=== PATIENT | female | born 1950 | race Caucasian/White ===

== ENCOUNTER 2018-03-29 22:10 | Inpatient (IN) | payer MEDICARE, MEDICAID ==
[2018-03-29] MEDS ORDERED: Sodium Chloride 0.9% 1,000 ML IV ONE (22:39)
--- NOTE | 2018-03-29 22:46 | ED Physician Chart ---
ED Chief Complaint/HPI - Patient Information Date Seen:: 03/29/18 Time Seen:: 22:35 Chief Complaint:: low back pain and anorexia History of Present Illness:: Patient is being sent here for low back pain and for anorexia. She declines to provide any history. Allergies:: Allergies Allergy/AdvReac Type Severity Reaction Status Date / Time aspirin Allergy Verified 03/29/18 22:12 codeine Allergy Verified 03/29/18 22:12 Penicillins [PCN] Allergy Verified 03/29/18 22:12 Sulfa (Sulfonamide Allergy Verified 03/29/18 22:12 Antibiotics) tramadol Allergy Verified 03/29/18 22:12 Vitals:: Vital Signs - 8 hr 03/29/18 22:15 Temp 98.4 F HR 84 RR 19 BP 140/83 O2 Sat % 96 Historian:: Patient, EMS Review:: Nurse's Note Reviewed, Transfer documents Reviewed ED Review of Systems - Review of Systems General/Constitutional: No fever, No chills, No weight loss, No weakness, No diaphoresis, No edema, No loss of appetite Skin: No skin lesions, No rash, No bruising Head: No headache, No light-headedness Eyes: No loss of vision, No pain, No diplopia ENT: No earache, No nasal drainage, No sore throat, No tinnitus Neck: No neck pain, No swelling, No thyromegaly, No stiffness, No mass noted Cardio Vascular: No chest pain, No palpitations, No PND, No orthopnea, No edema Pulmonary: No SOB, No cough, No sputum, No wheezing GI: No nausea, No vomiting, No diarrhea, No pain, No melena, No hematochezia, No constipation, No hematemesis, Other (anorexia) G/U: No dysuria, No frequency, No hematuria Musculoskeletal: Back pain Endocrine: No polyuria, No polydipsia Psychiatric: No prior psych history, No depression, No anxiety, No suicidal ideation Hematopoietic: No bruising, No lymphadenopathy Allergic/Immuno: No urticaria, No angioedema Neurological: No syncope, No focal symptoms, No weakness, No paresthesia, No headache, No seizure, No dizziness, No confusion, No vertigo ED Past Medical History - Past Medical History Past Medical History: HTN, Dyslipidemia, PUD/GERD, Other (low back pain; fibromyalgia; atherosclerotic heart disease; anxiety; hyperlipidemia; insomnia) Family History: Other (unavailable) Social History: Care Facility Surgical History: other (unavailable) Psychiatricy History: Depression Family Medical History - Family Member Mother History Unknown: Yes ED Physical Exam - Physical Examination General/Constitutional: Awake, Well-developed, well-nourished, Alert, No distress, GCS 15, Non-toxic appearing, Ambulatory Head: Atraumatic Eyes: Lids, conjuctiva normal, PERRL, EOMI Skin: Nl inspection, No rash, No skin lesions, No ecchymosis, Well hydrated, No lymphadenopathy ENMT: External ears, nose nl, Nasal exam nl Other ENMT comments:: Upper partial plate and 4 out of 4 periodontal disease lower gum Neck: Nontender, Full ROM w/o pain, No JVD, No nuchal rigidity, No bruit, No mass, No stridor Respiratory: Nl effort/Exclusion, Clear to Auscultation, No Wheeze/Rhonchi/Rales Cardio Vascular: RRR, No murmur, gallop, rubs, NL S1 S2 GI: No tenderness/rebounding/guarding, No organomegaly, No hernia, Normal BS's, Nondistended, No mass/bruits, No McBurney tenderness : No CVA tenderness Extremities: No tenderness or effusion, Full ROM, normal strength in all extremities, No edema, Normal digits & nails Neuro/Psych: Alert/oriented, DTR's symmetric, Normal sensory exam, Normal motor strength, Judgement/insight normal, Mood normal, Normal gait, No focal deficits Misc: Normal back, No paraspinal tenderness ED Labs/Radiology/EKG Results - Lab Results Results: Laboratory Results - last 24 hr 03/29/18 03/29/18 22:53 22:53 WBC 8.9 RBC 3.19 L Hgb 7.1 L* Hct 22.0 L MCV 68.9 L MCH 22.2 L MCHC Differential 32.3 RDW 17.2 Plt Count 322 MPV 10.0 Neutrophils (Manual) 75 Lymphocytes 25 Hypochromia 2+ Platelet Estimate ADEQUATE Polychromasia 1+ Anisocytosis 2+ Microcytosis 2+ Sodium 136 Potassium 4.2 Chloride 107 Carbon Dioxide 20.8 L Anion Gap 12.4 BUN 29 H Creatinine 1.8 H Est GFR ( Amer) 35.8 Est GFR (Non-Af Amer) 29.6 BUN/Creatinine Ratio 16.1 Glucose 103 Calcium 9.4 Total Bilirubin 0.2 L AST 10 L ALT 4 L Alkaline Phosphatase 99 Total Protein 6.6 Albumin 3.9 Globulin 2.7 Albumin/Globulin Ratio 1.4 ED Septic Shock - . Is Septic Shock (SBP<90, OR Lactate>4 mmol\L) present?: No - <6hrs of presentation: Vital Signs: Vital Signs - 8 hr 03/29/18 22:15 Temp 98.4 F HR 84 RR 19 BP 140/83 O2 Sat % 96 ED Reassessment (Disposition) - Reassessment Reassessment Condition:: Unchanged - Diagnosis Diagnosis:: Anemia; low back pain; renal insufficiency - Patient Disposition Spoke to:: Hudson Tucker Admitting Medical Physician:: Hudson Tucker Condition at Disposition:: Stable, Unchanged
[2018-03-29 23:04] LABS: MEAN CORPUSCULAR HEMOGLOBIN 22.2 pg (27.0-31.0); MEAN CORPUSCULAR HGB CONC 32.3 pg (28.0-36.0); PLATELET COUNT 322 Th/cmm (150-400); RED BLOOD COUNT 3.19 Mil/cmm (3.80-5.20); RED CELL DISTRIBUTION WIDTH 17.2 % (11.5-20.0); WHITE BLOOD COUNT 8.9 Th/cmm (4.8-10.8)
[2018-03-29 23:10] LABS: HEMOGLOBIN 7.1 gm/dL (12-16)
[2018-03-29 23:11] LABS: MANUAL DIFF REQUIRED? YES; MEAN CELL VOLUME 68.9 fl (81-100)
[2018-03-29 23:25] LABS: ALB/GLOB RATIO 1.4 (1.0-1.8); ALBUMIN 3.9 gm/dL (3.7-5.3); ANION GAP 12.4 (7.0-16.0); BILIRUBIN,TOTAL 0.2 mg/dL (0.3-1.0); CALCIUM SERUM 9.4 mg/dL (8.6-10.3); CARBON DIOXIDE 20.8 mEq/L (21.0-31.0); CREATININE - SERUM 1.8 mg/dL (0.6-1.2); GFR AFRICAN-AMERICAN 35.8 ml/min (>90); GFR NON AFRICAN-AMERICAN 29.6 ml/min; POTASSIUM SERUM 4.2 mEq/L (3.5-5.1); TOTAL PROTEIN,SERUM 6.6 gm/dL (6.0-8.3)
[2018-03-29 23:36] LABS: ANISOCYTOSIS 2+; HYPOCHROMIA 2+; LYMPHOCYTE 25 % (20-50); NEUTROPHILS 75 % (40-80); PLATELET ESTIMATE ADEQUATE (NORMAL); POLYCHROMASIA 1+; TOTAL CELLS COUNTED 100
[2018-03-29] MEDS ORDERED: Magnesium Hydroxide (MOM) 30 mL UDC PO PRN (23:38)
[2018-03-30] MEDS ORDERED: Levofloxacin 750mg/150mL 750 MG/150 ML BAG IV ONE ×2 (00:05→00:09)
[2018-03-30 00:08] LABS: INR 0.89 (0.5-1.4); PROTHROMBIN TIME (TEST) 9.2 SECONDS (9.5-11.5)
[2018-03-30] MEDS: D5-0.45NS 1,000 ML IV SCH ×2 (01:26→15:26)
[2018-03-30 06:15] VITALS: BP 140/75
--- NOTE | 2018-03-30 08:17 | Diagnostic Imaging Report ---
CHEST X-RAY: AP view INDICATION: Pneumonia COMPARISON: None FINDINGS: There is evidence of prior median sternotomy. Large retrocardiac density is noted. Increased interstitial lung markings are noted. Cardiomegaly is noted. Degenerative changes of the spine are noted. There may have been previous right humeral neck fracture. IMPRESSION: Large retrocardiac density suggestive of a hiatal hernia. Note, pneumonia of the right lower lobe cannot be excluded. Clinical correlation and follow-up is recommended. CT would also provide for additional detail and assessment. Increased interstitial lung markings. A mild degree of congestion cannot be excluded. Cardiomegaly and atherosclerotic vascular disease. Possible previous right humeral neck fracture. Please correlate clinically. If indicated dedicated right shoulder x-rays may be obtained for further assessment. Postsurgical changes.
[2018-03-30] MEDS: Calcium Carb/Vit D 500 mg/200 U Tab PO SCH (08:26)
[2018-03-30] MEDS: Multivitamin Tab PO SCH (08:28)
[2018-03-30] MEDS ORDERED: MEPROBAMATE PO SCH (09:00)
--- NOTE | 2018-03-30 10:14 | History & Physical ---
ADMIT DATE: PATIENT IDENTIFICATION: A 68-year-old female. CHIEF COMPLAINT: Sent to Emergency Room for lower back pain, social isolation, and poor appetite. HISTORY SOURCE: Reviewing the chart from [facility] and Emergency Room MD. HISTORY OF PRESENT ILLNESS: A 68-year-old female who resides at [facility], has been followed by Dr. Tucker, has a diagnosis of hypertension, coronary artery disease, hyperlipidemia, fibromyalgia, chronic insomnia, generalized disorder, and GERD, noted by nursing staff that the patient having poor appetite with social isolation and the patient was complaining of the back pain. The patient was sent to Emergency Room where the patient was seen by Emergency Room MD, Dr. Nikko Lorenzo. The patient was noted to have infiltrate along the right inferior heart border with cardiomegaly and also noted to have large hiatal hernia. The patient was noted to have significant anemia with hemoglobin of 7.1. The patient was advised to be admitted to medical floor until the patient is medically stable and psych evaluation for social isolation. PAST MEDICAL HISTORY: Remarkable for: 1. Hypertension. 2. Hyperlipidemia. 3. Coronary artery disease. 4. DJD. 5. Fibromyalgia. 6. GERD. 7. Anxiety. 8. Chronic insomnia. MEDICATIONS AT HOME: She is taking at home, which includes Plavix, Tylenol, Norvasc, atorvastatin, multivitamin, Pepcid, lidocaine patch, melatonin, metoprolol, milk of magnesia, multivitamin, and Zoloft. ALLERGIES: THE PATIENT IS ALLERGIC TO MULTIPLE MEDICATIONS HERE, WHICH INCLUDES PENICILLIN, SULFA, CODEINE, TRAMADOL, AND ASPIRIN. SOCIAL HISTORY: The patient resides in a group home, unable to get further history. FAMILY HISTORY: Unavailable. REVIEW OF SYSTEMS: The patient is extremely agitated and wants to sleep. Unable to get history from the patient. PHYSICAL EXAMINATION: GENERAL: The patient is alert and awake, lying in the bed with agitated. VITAL SIGNS: Temperature 97.6, pulse 67, respiratory rate is 18, and blood pressure 130/60. HEENT: Normocephalic and atraumatic. Extraocular muscles are intact. Tongue was pink and coated. Poor dentition noted. NECK: Supple. No JVD. No hepatojugular reflex. No lymphadenopathy, thyromegaly, or carotid bruit. HEART: Both heart sounds are regular. No S3, no S4. CHEST AND LUNGS: Equal in expansion. No wheezing, no crackles. ABDOMEN: Soft. No guarding. No rigidity. Bowel sounds present. No palpable mass. EXTREMITIES: No edema, no cyanosis. Peripheral pulses are +2. No calf tenderness noted. Diffuse osteoarthritic changes noted. NEUROLOGIC: Alert and awake, but not following commands. Moving upper and lower extremity. AVAILABLE DIAGNOSTIC DATA: Has been reviewed. CLINICAL IMPRESSION: 1. Severe microcytic hypochromic anemia in the presence of coronary artery disease, needs blood transfusion and further workup. 2. Right lower lobe infiltrate by chest x-ray. 3. Large hiatal hernia. 4. Social isolation with history of depression, need psych evaluation. 5. Lower back pain, suspect chronic, needs further workup to be done as an outpatient. 6. Degenerative joint disease. 7. Gastroesophageal reflux disease. 8. Fibromyalgia by history. PLAN: 1. Admit this patient to Med-Surg floor. 2. Blood transfusion. 3. GI consult. 4. Anemia workup. 5. Psych consult. 6. Appropriate home medicine reconciliation. 7. Hold Plavix. 8. IV antibiotic. 9. CT scan of chest for better evaluation of infiltrate. 10. Fall precautions. 11. IV fluid. 12. General nursing care. 13. Follow up lab. 14. Follow consult recommendation. 15. Care plan reviewed and discussed with RN. JOB# [id number]
[2018-03-30] MEDS: Lidocaine 5% Patch TD SCH (10:41)
[2018-03-30] MEDS: Azithromycin 500 MG in Sodium Chloride 0.9% 250 ML IV SCH (11:50)
--- NOTE | 2018-03-30 14:09 | Diagnostic Imaging Report ---
CT Chest without IV contrast HISTORY: Shortness of breath COMPARISON: Chest x-ray 03/30/2018. Technique: Axial images were obtained from the base of the neck to the upper abdomen without IV contrast. Reconstructions were made. Total DLP to 46, CTD I 17 Findings: Exam is limited due to lack of IV contrast. There is evidence of prior median sternotomy. No evidence of mediastinal lymphadenopathy. Ascending aorta measures up to 3.3 cm. Diffuse atherosclerosis is noted. Mild cardiomegaly is noted. There is a large retrocardiac hiatal hernia primarily along the right side. The lung story demonstrate chronic lung changes with hypoventilatory and atelectatic changes and minimal groundglass opacities. Right basal consolidative changes are also noted adjacent to patient's hiatal hernia. The upper abdomen demonstrate atherosclerosis. Advanced degenerative changes of the spine are noted. IMPRESSION: Large hiatal hernia primarily along the right lower hemithorax. Associated adjacent consolidative changes are seen which may be due to atelectasis, however, pneumonia in this region cannot be excluded Hypoventilatory atelectatic changes of the lungs with mild groundglass opacities likely also due to hypoventilatory change Cardiomegaly and atherosclerosis. Evidence of prior median sternotomy.
[2018-03-31] MEDS: Levothyroxine 0.05 Mg Tab PO SCH (06:50)
[2018-03-31] MEDS: D5-0.45NS 1,000 ML IV SCH ×2 (07:30→13:21)
[2018-03-31] MEDS: Multivitamin Tab PO SCH (09:51)
[2018-03-31] MEDS: Calcium Carb/Vit D 500 mg/200 U Tab PO SCH (09:51)
[2018-03-31] MEDS: Lidocaine 5% Patch TD SCH (10:14)
--- NOTE | 2018-03-31 10:27 | Progress Notes ---
DATE: PATIENT'S IDENTIFICATION: 68-year-old female. The patient seen and examined. The patient was refusing all medications as well as all blood draws and monitor as well. The patient just wants to go home. The patient stated that she had recently upper endoscopy done and she does not want to have anymore GI workup as well as blood transfusion as well. The patient has a significant psychiatric history at this time. Prior to coming here, the patient was living in a half-way. PHYSICAL EXAMINATION: On today's exam, VITAL SIGNS: Temperature 97.2, pulse 62, respiratory rate 18, blood pressure 134/75. HEENT: No facial asymmetry. NECK: Supple, no JVD. HEART: Regular. CHEST AND LUNG: Equal in expansion. No wheezing, no crackles. ABDOMEN: Soft. EXTREMITIES: No edema. IMPRESSION: 1. Refusal of treatment. 2. Psychotic disorder. 3. Large hiatal hernia. 4. Significant anemia, refused blood transfusion and workup. 5. Degenerative joint disease. 6. Hypertension. 7. Coronary artery disease. 8. Debility. PLAN: 1. Discontinue monitor bed. 2. Psych consult. 3. Psych medication. 4. Once the patient is agreeable. The patient will receive treatment for blood transfusion as well as further care as directed by myself and sales and service consultant. JOB# [id number]
[2018-03-31] MEDS ORDERED: Probiotic Screen MC PRN (11:15)
[2018-03-31] MEDS: Azithromycin 500 MG in Sodium Chloride 0.9% 250 ML IV SCH (11:23)
--- NOTE | 2018-03-31 13:19 | Consultation ---
DATE OF CONSULTATION: 03/31/2018 INPATIENT GI CONSULTATION CONSULTING PHYSICIAN: Dr. Macario. REASON FOR CONSULTATION: Anemia. HISTORY OF PRESENT ILLNESS: The patient is a 68-year-old female who resides at [facility] with past medical history significant for hypertension, coronary artery disease with previous bypass surgery, hyperlipidemia, fibromyalgia, and hiatal hernia, who was referred to the hospital for poor appetite and back pain. The patient is largely uncooperative with the interview and is somewhat tangential in her thinking and statements and thus most of the history is obtained from the chart. At the current time, the patient does not have any specific complaints and insists that she is healthy. On admission, she had a hemoglobin of 7.1, and thus, GI consultation was placed to evaluate for any signs of GI losses and further evaluation. The patient notes that she had EGD and colonoscopy 6 weeks ago at either [facility] or [facility] and she is not sure which, additionally it was remarked by the patient's sitter that she had dark colored stool this morning, which was either dark brown or lightly black in color. OB has been ordered, but not yet performed. The patient is not vomiting and has no other complaints. PAST MEDICAL HISTORY: Hypertension, coronary artery disease, previous bypass surgery, hyperlipidemia, degenerative joint disease, fibromyalgia, GERD, and hiatal hernia. PAST SURGICAL HISTORY: Bypass surgery that was performed 2 years ago as per the patient. FAMILY HISTORY: Noncontributory. SOCIAL HISTORY: The patient denies any smoking or drinking or other illicit drug use. REVIEW OF SYSTEMS: A 12-point review of systems was performed with the patient and is negative other than the pertinent positives are mentioned in the history of present illness. CURRENT MEDICATIONS: Tylenol, Norvasc, Lipitor, azithromycin, Dulcolax, vitamin D, famotidine, Synthroid, lidocaine patch, magnesium hydroxide, metoprolol, multivitamin, and sertraline. PHYSICAL EXAMINATION: VITAL SIGNS: Blood pressure is 135/71, pulse 63 beats per minute, temperature 97.2, and oximetry 98%. GENERAL: The patient is sitting upright in bed. She is alert and oriented x 2-3. She is in no apparent distress. HEAD, EARS, EYES, NOSE, AND THROAT: Normocephalic, atraumatic appearing head. Pupils are equal and reactive to light. Extraocular muscles are intact with moist mucous membranes. NECK: Supple. No JVD or thyromegaly. LUNGS: There are crackles at both bases. CARDIOVASCULAR: S1 and S2 present. Regular rate and rhythm. ABDOMEN: Soft, obese, nontender to palpation. No guarding, no rebound, no distention. EXTREMITIES: A 1+ pitting edema bilaterally. Pulses are not present. SKIN: There are no obvious jaundice or cyanosis. LABORATORY DATA: White blood cell count is 8.9, hemoglobin is 7.1, and platelet count is ____. INR 0.8. Sodium 136, BUN 29, creatinine 1.8, AST is 10, ALT 4, total bilirubin 0.2, although all of these labs were done on 03/29/2018. IMAGING: A chest CT was performed on admission shows a large hiatal hernia along the right lower hemithorax. There are adjacent consolidative changes, which may be due to atelectasis, although pneumonia cannot be excluded, cardiomegaly, and atherosclerosis. IMPRESSION: This is a 68-year-old female with history of hypertension, hyperlipidemia, coronary artery disease with previous bypass surgery, evidence of a hiatal hernia on CT scan, who is admitted to the hospital with back pain and poor appetite and anemia. 1. Anemia. 2. Hiatal hernia. 3. Back pain. 4. Fibromyalgia. 5. Coronary artery disease, previous bypass surgery. DISCUSSION: At this point, the patient is preventing further workup of her anemia. She is refusing to have any consideration of further lab draws, EGD, or colonoscopy or even stool occult testing. She does report having an EGD and colonoscopy 6 weeks ago at [facility] or [facility], although I somewhat doubt that this is true. She has a hiatal hernia on the CT scan. She may have Willie's erosions within the hernia, which could cause the anemia such as this. However, if the patient truly did not have EGD and colonoscopy before, then these exams are certainly indicated at this time, although she is not allowing this. She likely will need a psychiatric consultation as I am not certain that she is able to make decisions for herself at this point. RECOMMENDATIONS: 1. If she allows it, the patient should have blood draws and fecal occult testing. 2. We will try to confirm whether the patient actually did have EGD and colonoscopy 6 weeks ago at either [facility] or [facility]. If she did not, then she certainly would be indicated for these exams now, although she is not allowing them. 3. We would place the patient on iron therapy at this time. 4. Recommend psychiatric consultation. 5. If the patient does allow for further workup, we will consider performing the endoscopies as stated above if she has truly not had them. Thank you for allowing me to participate in the care of this patient. Please call if you have any further questions. JOB# [id number]
[2018-03-31] MEDS: Ferrous Sulfate 325 MG TAB PO SCH (17:45)
--- NOTE | 2018-03-31 23:32 | Consultation ---
DATE OF CONSULTATION: 03/31/2018 THE PATIENT'S AGE: 68. SEX: Female. PHYSICIAN: Dr. Tucker. FURNITURE INSPECTOR: Dr. Cohn. TYPE OF THE REPORT: Psychiatric consult. REASON FOR THE CONSULT: Evaluating psychotropic medications and poor appetite. HISTORY OF PRESENT ILLNESS: The patient is a 68-year-old female, who was admitted to the hospital because of lower back pain as well as social isolation and poor appetite. The patient lives in [facility]. The patient has been depressed and has been isolative. Also, his appetite is much decreased. The patient also has been guarded and has been withdrawn lately. She also has been anxious. PAST PSYCHIATRIC HISTORY: The patient has history of depression and has been taking Zoloft. PAST MEDICAL HISTORY: The patient has gastroesophageal reflux disease as well as coronary artery disease, hypertension, and hyperlipidemia. SOCIAL HISTORY: No known alcohol or drug use. MENTAL STATUS EXAM: The patient appears her stated age. Depressed mood. Flat affect. Thought processes is goal directed. The patient denies hallucinations or delusions and denies suicide or homicidal ideations. ASSESSMENT: PRIMARY DIAGNOSIS: Depressive disorder, unspecified. TREATMENT PLAN: Monitor the patient's behavior and condition closely. Also, we will continue Zoloft and we will monitor the dose. Also, if the patient continues to be severely depressed and when medically stable, the patient might be a candidate for Geropsych unit. Thanks to Dr. Tucker. We will follow with you. JOB# [id number]
[2018-04-01] MEDS: Lactobacillus Rhamnosus GG 15 Billion CFU CAP.SPRINK PO SCH (09:02)
[2018-04-01] MEDS: Calcium Carb/Vit D 500 mg/200 U Tab PO SCH (09:04)
[2018-04-01] MEDS: Ferrous Sulfate 325 MG TAB PO SCH ×2 (09:04→16:45)
[2018-04-01] MEDS: Multivitamin Tab PO SCH (09:04)
[2018-04-01] MEDS: Levothyroxine 0.05 Mg Tab PO SCH (12:20)
[2018-04-01] MEDS: Azithromycin 500 MG in Sodium Chloride 0.9% 250 ML IV SCH (12:22)
[2018-04-01] MEDS: Lidocaine 5% Patch TD SCH (12:25)
--- NOTE | 2018-04-01 20:44 | GI Progress Note ---
Subjective - Review of Systems Service Date: 04/01/18 Subjective: EVENTS NOTED. NO COMPLAINTS. Objective - Results Result Diagrams: 03/29/18 22:53 03/29/18 22:53 Recent Labs: Laboratory Last Values WBC 8.9 Th/cmm (4.8-10.8) 03/29/18 22:53 RBC 3.19 Mil/cmm (3.80-5.20) L 03/29/18 22:53 Hgb 7.1 gm/dL (12-16) L* 03/29/18 22:53 Hct 22.0 % (41.0-60) L 03/29/18 22:53 MCV 68.9 fl (81-100) L 03/29/18 22:53 MCH 22.2 pg (27.0-31.0) L 03/29/18 22:53 MCHC Differential 32.3 pg (28.0-36.0) 03/29/18 22:53 RDW 17.2 % (11.5-20.0) 03/29/18 22:53 Plt Count 322 Th/cmm (150-400) 03/29/18 22:53 MPV 10.0 fl 03/29/18 22:53 Neutrophils (Manual) 75 % (40-80) 03/29/18 22:53 Lymphocytes 25 % (20-50) 03/29/18 22:53 Hypochromia 2+ 03/29/18 22:53 Platelet Estimate ADEQUATE (NORMAL) 03/29/18 22:53 Polychromasia 1+ 03/29/18 22:53 Anisocytosis 2+ 03/29/18 22:53 Microcytosis 2+ 03/29/18 22:53 PT 9.2 SECONDS (9.5-11.5) L 03/29/18 23:40 INR 0.89 (0.5-1.4) 03/29/18 23:40 Sodium 136 mEq/L (136-145) 03/29/18 22:53 Potassium 4.2 mEq/L (3.5-5.1) 03/29/18 22:53 Chloride 107 mEq/L (98-107) 03/29/18 22:53 Carbon Dioxide 20.8 mEq/L (21.0-31.0) L 03/29/18 22:53 Anion Gap 12.4 (7.0-16.0) 03/29/18 22:53 BUN 29 mg/dL (7-25) H 03/29/18 22:53 Creatinine 1.8 mg/dL (0.6-1.2) H 03/29/18 22:53 Est GFR ( Amer) 35.8 ml/min (>90) 03/29/18 22:53 Est GFR (Non-Af Amer) 29.6 ml/min 03/29/18 22:53 BUN/Creatinine Ratio 16.1 03/29/18 22:53 Glucose 103 mg/dL (70-105) 03/29/18 22:53 Calcium 9.4 mg/dL (8.6-10.3) 03/29/18 22:53 Total Bilirubin 0.2 mg/dL (0.3-1.0) L 03/29/18 22:53 AST 10 U/L (13-39) L 03/29/18 22:53 ALT 4 U/L (7-52) L 03/29/18 22:53 Alkaline Phosphatase 99 U/L (34-104) 03/29/18 22:53 Troponin I 0.01 ng/mL (0.01-0.05) 03/29/18 23:40 Total Protein 6.6 gm/dL (6.0-8.3) 03/29/18 22:53 Albumin 3.9 gm/dL (3.7-5.3) 03/29/18 22:53 Globulin 2.7 gm/dL 03/29/18 22:53 Albumin/Globulin Ratio 1.4 (1.0-1.8) 03/29/18 22:53 TSH 7.48 uIU/ml (0.34-5.60) H 03/29/18 23:40 Blood Type O POSITIVE 03/29/18 23:40 Antibody Screen NEGATIVE 03/29/18 23:40 Crossmatch See Detail 03/29/18 23:40 - Physical Exam Vitals and I&O: Vital Signs Temp 97.2 F 04/01/18 16:00 Pulse 76 04/01/18 16:00 Resp 18 04/01/18 16:00 BP 149/85 04/01/18 12:00 Pulse Ox 98 04/01/18 16:00 Intake & Output 0504/01/18 04/02/18 06:59 18:59 06:59 Weight (lbs) 65.771 kg 65.771 kg Other: Weight Source Estimated Estimated Active Medications: Current Medications Acetaminophen (Tylenol) 650 mg PO Q6H PRN PRN Reason: Pain or Fever >101 Stop: 05/28/18 23:36 Amlodipine Besylate (Norvasc) 5 mg PO DAILY MUKESH Stop: 05/29/18 08:59 Last Admin: 04/01/18 09:04 Dose: 5 mg Atorvastatin Calcium (Lipitor) 80 mg PO HS MUKESH PRN Reason: Protocol Stop: 05/29/18 20:59 Last Admin: 03/31/18 21:11 Dose: Not Given Bisacodyl (Dulcolax 10 Mg Supp) 10 mg RC DAILY PRN PRN Reason: Constipation Stop: 05/28/18 23:36 Calcium/Vitamin D (Oscal W/Vitamin D) 1 tab PO DAILY MUKESH Stop: 05/29/18 08:59 Last Admin: 04/01/18 09:04 Dose: 1 tab Famotidine (Pepcid) 20 mg PO QDAC MUKESH Stop: 05/29/18 07:29 Last Admin: 04/01/18 12:19 Dose: Not Given Ferrous Sulfate (Iron) 325 mg PO BID MUKESH Stop: 05/30/18 16:59 Last Admin: 04/01/18 16:45 Dose: Not Given Dextrose/Sodium Chloride (D5-0.45ns) 1,000 mls @ 80 mls/hr IV .[id number] MUKESH Stop: 05/28/18 23:44 Last Admin: 03/31/18 13:21 Dose: Not Given Azithromycin 500 mg/ Sodium (Chloride) 250 mls @ 250 mls/hr IV Q24HR MUKESH Stop: 05/29/18 10:59 Last Admin: 04/01/18 12:22 Dose: Not Given Lactobacillus Rhamnosus (Culturelle 15b) 1 each PO DAILY MUKESH Stop: 05/31/18 08:59 Last Admin: 04/01/18 09:02 Dose: 1 each Levothyroxine Sodium (Synthroid) 0.05 mg PO QDAC MUKESH Stop: 05/30/18 07:29 Last Admin: 04/01/18 12:20 Dose: Not Given Lidocaine (Lidoderm 5% Patch) 1 patch TD DAILY [facility] Stop: 05/29/18 08:59 Last Admin: 04/01/18 12:25 Dose: Not Given Magnesium Hydroxide (Milk Of Magnesia) 30 ml PO HS PRN PRN Reason: Constipation Stop: 05/28/18 23:37 Metoprolol Tartrate (Lopressor) 12.5 mg PO BID MUKESH Stop: 05/29/18 08:59 Last Admin: 04/01/18 16:45 Dose: Not Given Miscellaneous (Probiotic Screen) 1 ea MC PRN PRN PRN Reason: PROTOCOL Stop: 05/30/18 11:14 Multivitamins/Vitamin C (Theragran) 1 tab PO DAILY MUKESH Stop: 05/29/18 08:59 Last Admin: 04/01/18 09:04 Dose: 1 tab Sertraline HCl (Zoloft) 50 mg PO DAILY MUKESH PRN Reason: Protocol Stop: 05/29/18 08:59 Last Admin: 04/01/18 09:04 Dose: 50 mg General: No acute distress HEENT: Atraumatic Neck: Supple Cardiovascular: Regular rate Lungs: Clear to auscultation Abdomen: Bowel sounds, Soft Assessment/Plan - Assessment Assessment: IMPRESSION: 1. ANEMIA. 2. PSYCH DISORDER. 3. HIATAL HERNIA. 4. CAD. 5. FIBROMYALGIA. RECS: 1. MONITOR HGB; TRANSFUSE PRN. 2. OFFERED EGD AND COLONOSCOPY - SHE REFUSES. 3. DIET GEETHA.
--- NOTE | 2018-04-02 01:49 | Progress Notes ---
DATE: 04/01/2018 IDENTIFICATION: A 68-year-old female. The patient continued to refuse medications as well as the treatment plan. The patient has been seen by Dr. Ellyn Cohn on 03/31/2018. The patient needs to be placed in the psych facility in the view of her primary diagnosis. The patient currently denies any new complaint. PHYSICAL EXAMINATION: VITAL SIGNS: Temperature 98.6, pulse 85, respiratory rate is 18, blood pressure is 150/85. HEENT: No facial asymmetry. NECK: Supple, no JVD. HEART: Regular. CHEST: Equal in expansion, no wheezing, no crackles. ABDOMEN: Soft. EXTREMITIES: No edema. CLINICAL IMPRESSION: 1. Psychotic disorder exacerbation. 2. Refusing all the medication and treatment plan. 3. Hiatal hernia. 4. Significant anemia. 5. Coronary artery disease. 6. Degenerative joint disease. PLAN: Discharge this patient to psych facility since the patient was refusing medical treatment and the patient remained hemodynamically stable. JOB# [id number]
[2018-04-02] MEDS: Levothyroxine 0.05 Mg Tab PO SCH (06:51)
--- NOTE | 2018-04-02 08:16 | GI Progress Note ---
Subjective - Review of Systems Service Date: 04/02/18 Subjective: EVENTS NOTED. NO COMPLAINTS. ORDERS HER MEALS FROM [employer] [employer]. Objective - Results Result Diagrams: 03/29/18 22:53 03/29/18 22:53 Recent Labs: Laboratory Last Values WBC 8.9 Th/cmm (4.8-10.8) 03/29/18 22:53 RBC 3.19 Mil/cmm (3.80-5.20) L 03/29/18 22:53 Hgb 7.1 gm/dL (12-16) L* 03/29/18 22:53 Hct 22.0 % (41.0-60) L 03/29/18 22:53 MCV 68.9 fl (81-100) L 03/29/18 22:53 MCH 22.2 pg (27.0-31.0) L 03/29/18 22:53 MCHC Differential 32.3 pg (28.0-36.0) 03/29/18 22:53 RDW 17.2 % (11.5-20.0) 03/29/18 22:53 Plt Count 322 Th/cmm (150-400) 03/29/18 22:53 MPV 10.0 fl 03/29/18 22:53 Neutrophils (Manual) 75 % (40-80) 03/29/18 22:53 Lymphocytes 25 % (20-50) 03/29/18 22:53 Hypochromia 2+ 03/29/18 22:53 Platelet Estimate ADEQUATE (NORMAL) 03/29/18 22:53 Polychromasia 1+ 03/29/18 22:53 Anisocytosis 2+ 03/29/18 22:53 Microcytosis 2+ 03/29/18 22:53 PT 9.2 SECONDS (9.5-11.5) L 03/29/18 23:40 INR 0.89 (0.5-1.4) 03/29/18 23:40 Sodium 136 mEq/L (136-145) 03/29/18 22:53 Potassium 4.2 mEq/L (3.5-5.1) 03/29/18 22:53 Chloride 107 mEq/L (98-107) 03/29/18 22:53 Carbon Dioxide 20.8 mEq/L (21.0-31.0) L 03/29/18 22:53 Anion Gap 12.4 (7.0-16.0) 03/29/18 22:53 BUN 29 mg/dL (7-25) H 03/29/18 22:53 Creatinine 1.8 mg/dL (0.6-1.2) H 03/29/18 22:53 Est GFR ( Amer) 35.8 ml/min (>90) 03/29/18 22:53 Est GFR (Non-Af Amer) 29.6 ml/min 03/29/18 22:53 BUN/Creatinine Ratio 16.1 03/29/18 22:53 Glucose 103 mg/dL (70-105) 03/29/18 22:53 Calcium 9.4 mg/dL (8.6-10.3) 03/29/18 22:53 Total Bilirubin 0.2 mg/dL (0.3-1.0) L 03/29/18 22:53 AST 10 U/L (13-39) L 03/29/18 22:53 ALT 4 U/L (7-52) L 03/29/18 22:53 Alkaline Phosphatase 99 U/L (34-104) 03/29/18 22:53 Troponin I 0.01 ng/mL (0.01-0.05) 03/29/18 23:40 Total Protein 6.6 gm/dL (6.0-8.3) 03/29/18 22:53 Albumin 3.9 gm/dL (3.7-5.3) 03/29/18 22:53 Globulin 2.7 gm/dL 03/29/18 22:53 Albumin/Globulin Ratio 1.4 (1.0-1.8) 03/29/18 22:53 CA 125 Antigen 16.0 03/29/18 23:40 TSH 7.48 uIU/ml (0.34-5.60) H 03/29/18 23:40 Blood Type O POSITIVE 03/29/18 23:40 Antibody Screen NEGATIVE 03/29/18 23:40 Crossmatch See Detail 03/29/18 23:40 - Physical Exam Vitals and I&O: Vital Signs Temp 97.9 F 04/02/18 07:57 Pulse 74 04/02/18 07:57 Resp 19 04/02/18 07:57 BP 164/81 04/02/18 07:57 Pulse Ox 96 04/02/18 07:57 Intake & Output 04/01/18 04/02/18 04/02/18 18:59 06:59 18:59 Intake Total 600 Balance 600 Weight (lbs) 65.771 kg 65.771 kg 65.771 kg Intake: Oral 600 Other: # Voids 3 # Bowel Movements 0 Weight Source Estimated Bedscale Estimated Active Medications: Current Medications Acetaminophen (Tylenol) 650 mg PO Q6H PRN PRN Reason: Pain or Fever >101 Stop: 05/28/18 23:36 Amlodipine Besylate (Norvasc) 5 mg PO DAILY MUKESH Stop: 05/29/18 08:59 Last Admin: 04/01/18 09:04 Dose: 5 mg Atorvastatin Calcium (Lipitor) 80 mg PO HS MUKESH PRN Reason: Protocol Stop: 05/29/18 20:59 Last Admin: 04/01/18 21:40 Dose: Not Given Bisacodyl (Dulcolax 10 Mg Supp) 10 mg RC DAILY PRN PRN Reason: Constipation Stop: 05/28/18 23:36 Calcium/Vitamin D (Oscal W/Vitamin D) 1 tab PO DAILY MUKESH Stop: 05/29/18 08:59 Last Admin: 04/01/18 09:04 Dose: 1 tab Famotidine (Pepcid) 20 mg PO QDAC MUKESH Stop: 05/29/18 07:29 Last Admin: 04/02/18 06:51 Dose: Not Given Ferrous Sulfate (Iron) 325 mg PO BID MUKESH Stop: 05/30/18 16:59 Last Admin: 04/01/18 16:45 Dose: Not Given Dextrose/Sodium Chloride (D5-0.45ns) 1,000 mls @ 80 mls/hr IV .[id number] MUKESH Stop: 05/28/18 23:44 Last Admin: 03/31/18 13:21 Dose: Not Given Azithromycin 500 mg/ Sodium (Chloride) 250 mls @ 250 mls/hr IV Q24HR MUKESH Stop: 05/29/18 10:59 Last Admin: 04/01/18 12:22 Dose: Not Given Lactobacillus Rhamnosus (Culturelle 15b) 1 each PO DAILY MUKESH Stop: 05/31/18 08:59 Last Admin: 04/01/18 09:02 Dose: 1 each Levothyroxine Sodium (Synthroid) 0.05 mg PO QDAC [facility] Stop: 05/30/18 07:29 Last Admin: 04/02/18 06:51 Dose: Not Given Lidocaine (Lidoderm 5% Patch) 1 patch TD DAILY MUKESH Stop: 05/29/18 08:59 Last Admin: 04/01/18 12:25 Dose: Not Given Magnesium Hydroxide (Milk Of Magnesia) 30 ml PO HS PRN PRN Reason: Constipation Stop: 05/28/18 23:37 Metoprolol Tartrate (Lopressor) 12.5 mg PO BID MUKESH Stop: 05/29/18 08:59 Last Admin: 04/01/18 16:45 Dose: Not Given Miscellaneous (Probiotic Screen) 1 ea MC PRN PRN PRN Reason: PROTOCOL Stop: 05/30/18 11:14 Multivitamins/Vitamin C (Theragran) 1 tab PO DAILY MUKESH Stop: 05/29/18 08:59 Last Admin: 04/01/18 09:04 Dose: 1 tab Sertraline HCl (Zoloft) 50 mg PO DAILY MUKESH PRN Reason: Protocol Stop: 05/29/18 08:59 Last Admin: 04/01/18 09:04 Dose: 50 mg General: No acute distress HEENT: Atraumatic Neck: Supple Cardiovascular: Regular rate Lungs: Clear to auscultation Abdomen: Bowel sounds, Soft Assessment/Plan - Assessment Assessment: IMPRESSION: 1. ANEMIA. 2. PSYCH DISORDER. 3. HIATAL HERNIA. 4. CAD. 5. FIBROMYALGIA. RECS: 1. MONITOR HGB; TRANSFUSE PRN. 2. OFFERED EGD AND COLONOSCOPY - SHE REFUSES. 3. DIET GEETHA.
[2018-04-02] MEDS: Lactobacillus Rhamnosus GG 15 Billion CFU CAP.SPRINK PO SCH (09:13)
[2018-04-02] MEDS: Calcium Carb/Vit D 500 mg/200 U Tab PO SCH (09:13)
[2018-04-02] MEDS: Multivitamin Tab PO SCH (09:13)
[2018-04-02] MEDS: Ferrous Sulfate 325 MG TAB PO SCH (09:13)
[2018-04-02] MEDS: Azithromycin 500 MG in Sodium Chloride 0.9% 250 ML IV SCH (12:29)
[2018-04-02] MEDS: Lidocaine 5% Patch TD SCH (17:24)
--- NOTE | 2018-04-03 01:36 | Progress Notes ---
DATE: 04/02/2018 MEDICAL PROGRESS NOTE IDENTIFICATION: The patient is a 67-year-old female. SUBJECTIVE: The patient seen and examined. The patient is lying in the bed. The patient has no new complaint. The patient is stable for transfer to Psych Unit. Psychiatrist input is currently pending. The patient currently denies any chest pain, short of breath, palpitation, dizziness, nausea, vomiting. PHYSICAL EXAMINATION: VITAL SIGNS: Temperature 97.9, pulse is 74, respiratory rate is 18, blood pressure 164/81. HEENT: No facial asymmetry. NECK: Supple, no JVD. HEART: Regular. CHEST: Lung equal in expansion. No wheezing, no crackles. ABDOMEN: Soft. EXTREMITIES: No edema. IMPRESSION: 1. Normocytic hypochromic anemia. 2. Hypothyroidism. 3. Coronary artery disease. 4. Fibromyalgia. 5. Psychotic disorder. 6. Degenerative joint disease. 7. Pneumonitis. 8. Hiatal hernia. 9. Cardiomegaly by CT chest. PLAN: Since the patient is refusing entire workup at this time, the patient is stable to go to Psych Unit. If psychiatrist does not want to take her, the patient can be discharged to lower level of care where she came from. Appropriate arrangements will be made once we get the clearance from the psychiatrist. JOB# [id number]
[2018-04-03] MEDS: Levothyroxine 0.05 Mg Tab PO SCH (06:47)
[2018-04-03] MEDS: Ferrous Sulfate 325 MG TAB PO SCH ×2 (08:35→08:48)
[2018-04-03] MEDS: Lactobacillus Rhamnosus GG 15 Billion CFU CAP.SPRINK PO SCH ×2 (08:38→08:48)
[2018-04-03] MEDS: Calcium Carb/Vit D 500 mg/200 U Tab PO SCH ×2 (08:38→08:48)
[2018-04-03] MEDS: Multivitamin Tab PO SCH ×2 (08:38→08:48)
[2018-04-03] MEDS: Lidocaine 5% Patch TD SCH ×2 (08:38→08:44)
[2018-04-03] MEDS: Azithromycin 500 MG in Sodium Chloride 0.9% 250 ML IV SCH (11:47)
--- NOTE | 2018-04-03 19:04 | GI Progress Note ---
Subjective - Review of Systems Service Date: 04/03/18 Subjective: PATIENT SEEN AND EXAMINED AT 0800. DELAYED NOTE ENTRY. EVENTS NOTED. NO COMPLAINTS. Objective - Results Result Diagrams: 03/29/18 22:53 03/29/18 22:53 Recent Labs: Laboratory Last Values WBC 8.9 Th/cmm (4.8-10.8) 03/29/18 22:53 RBC 3.19 Mil/cmm (3.80-5.20) L 03/29/18 22:53 Hgb 7.1 gm/dL (12-16) L* 03/29/18 22:53 Hct 22.0 % (41.0-60) L 03/29/18 22:53 MCV 68.9 fl (81-100) L 03/29/18 22:53 MCH 22.2 pg (27.0-31.0) L 03/29/18 22:53 MCHC Differential 32.3 pg (28.0-36.0) 03/29/18 22:53 RDW 17.2 % (11.5-20.0) 03/29/18 22:53 Plt Count 322 Th/cmm (150-400) 03/29/18 22:53 MPV 10.0 fl 03/29/18 22:53 Neutrophils (Manual) 75 % (40-80) 03/29/18 22:53 Lymphocytes 25 % (20-50) 03/29/18 22:53 Hypochromia 2+ 03/29/18 22:53 Platelet Estimate ADEQUATE (NORMAL) 03/29/18 22:53 Polychromasia 1+ 03/29/18 22:53 Anisocytosis 2+ 03/29/18 22:53 Microcytosis 2+ 03/29/18 22:53 PT 9.2 SECONDS (9.5-11.5) L 03/29/18 23:40 INR 0.89 (0.5-1.4) 03/29/18 23:40 Sodium 136 mEq/L (136-145) 03/29/18 22:53 Potassium 4.2 mEq/L (3.5-5.1) 03/29/18 22:53 Chloride 107 mEq/L (98-107) 03/29/18 22:53 Carbon Dioxide 20.8 mEq/L (21.0-31.0) L 03/29/18 22:53 Anion Gap 12.4 (7.0-16.0) 03/29/18 22:53 BUN 29 mg/dL (7-25) H 03/29/18 22:53 Creatinine 1.8 mg/dL (0.6-1.2) H 03/29/18 22:53 Est GFR ( Amer) 35.8 ml/min (>90) 03/29/18 22:53 Est GFR (Non-Af Amer) 29.6 ml/min 03/29/18 22:53 BUN/Creatinine Ratio 16.1 03/29/18 22:53 Glucose 103 mg/dL (70-105) 03/29/18 22:53 Calcium 9.4 mg/dL (8.6-10.3) 03/29/18 22:53 Total Bilirubin 0.2 mg/dL (0.3-1.0) L 03/29/18 22:53 AST 10 U/L (13-39) L 03/29/18 22:53 ALT 4 U/L (7-52) L 03/29/18 22:53 Alkaline Phosphatase 99 U/L (34-104) 03/29/18 22:53 Troponin I 0.01 ng/mL (0.01-0.05) 03/29/18 23:40 Total Protein 6.6 gm/dL (6.0-8.3) 03/29/18 22:53 Albumin 3.9 gm/dL (3.7-5.3) 03/29/18 22:53 Globulin 2.7 gm/dL 03/29/18 22:53 Albumin/Globulin Ratio 1.4 (1.0-1.8) 03/29/18 22:53 CA 125 Antigen 16.0 03/29/18 23:40 TSH 7.48 uIU/ml (0.34-5.60) H 03/29/18 23:40 Blood Type O POSITIVE 03/29/18 23:40 Antibody Screen NEGATIVE 03/29/18 23:40 Crossmatch See Detail 03/29/18 23:40 - Physical Exam Vitals and I&O: Vital Signs Temp 97.0 F 04/03/18 13:13 Pulse 67 04/03/18 13:13 Resp 18 04/03/18 13:13 BP 143/70 04/03/18 13:13 Pulse Ox 97 04/03/18 13:13 Intake & Output 04/03/18 04/03/18 04/04/18 06:59 18:59 06:59 Intake Total 700 300 Balance 700 300 Weight (lbs) 65.771 kg 65.771 kg Intake: Oral 700 300 Other: # Voids 3 3 # Bowel Movements 0 2 Weight Source Bedscale Bedscale General: No acute distress HEENT: Atraumatic Neck: Supple Cardiovascular: Regular rate Lungs: Clear to auscultation Abdomen: Bowel sounds, Soft Assessment/Plan - Assessment Assessment: IMPRESSION: 1. ANEMIA. 2. PSYCH DISORDER. 3. HIATAL HERNIA. 4. CAD. 5. FIBROMYALGIA. RECS: 1. MONITOR HGB; TRANSFUSE PRN. 2. OFFERED EGD AND COLONOSCOPY - SHE REFUSES. 3. DIET GEETHA. 4. GI GALEANA STABLE.
--- NOTE | 2018-04-03 21:53 | Progress Notes ---
DATE: IDENTIFICATION: A 68-year-old female. SUBJECTIVE: The patient seen and examined. The patient has no new complaint. Awaiting transfer to [facility] versus discharge plan to senior care. The patient remained hemodynamically stable. PHYSICAL EXAMINATION: VITAL SIGNS: Temperature 97, pulse is 86, respiratory rate is 18, blood pressure is 156/83. HEENT: No facial asymmetry. NECK: Supple, no JVD. HEART: Regular. CHEST AND LUNGS: Equal in expansion, no wheezing, no crackles. ABDOMEN: Soft. No guarding, no rigidity. Bowel sounds present. No palpable mass. EXTREMITIES: No edema. CLINICAL IMPRESSION: 1. Anemia, refused blood transfusion. 2. Psychotic disorder. 3. Large hiatal hernia. 4. Degenerative joint disease. 5. Hypertension. 6. Coronary artery disease. 7. Debility. 8. Fibromyalgia. PLAN: Discharge plan to the psych versus senior care. Continue current medication at this time. JOB# [id number]
== END 2018-04-03 14:30 | DRG 811 ==
LOC: ER 22:10 → TELE 23:32 → MSI 03-31 10:12
PROVIDERS: ADMIT Internal Medicine; ATTEND Internal Medicine
DX: D50.9 Iron deficiency anemia, unspecified (principal); J18.9 Pneumonia, unspecified organism; M54.5 Low back pain; M19.90 Unspecified osteoarthritis, unspecified site; K44.9 Diaphragmatic hernia without obstruction or gangrene; K21.9 Gastro-esophageal reflux disease without esophagitis; M79.7 Fibromyalgia; E78.5 Hyperlipidemia, unspecified; F41.9 Anxiety disorder, unspecified; I25.10 Atherosclerotic heart disease of native coronary artery without angina pectoris; F51.04 Psychophysiologic insomnia; Z95.1 Presence of aortocoronary bypass graft; Z91.19 Patient's noncompliance with other medical treatment and regimen; Z88.6 Allergy status to analgesic agent; Z88.5 Allergy status to narcotic agent; Z88.0 Allergy status to penicillin; Z88.2 Allergy status to sulfonamides; F32.9 Major depressive disorder, single episode, unspecified; D64.9 Anemia, unspecified; N28.9 Disorder of kidney and ureter, unspecified; G47.00 Insomnia, unspecified; E66.9 Obesity, unspecified; Z68.25 Body mass index [BMI] 25.0-25.9, adult; Z53.20 Procedure and treatment not carried out because of patient's decision for unspecified reasons; F29 Unspecified psychosis not due to a substance or known physiological condition; E03.9 Hypothyroidism, unspecified; I11.9 Hypertensive heart disease without heart failure
CPT/HCPCS: 36415-UA; 71045-TC; 71250-TC; 80053-TC; 84443-TC; 84484-TC; 85007-TC; 85025-TC; 85027-TC; 85610-TC; 86304-90; 86850-TC; 86900-TC; 86901-TC; 86922-TC; 87086-90; J0456; J1956; J7030; Z7610